=== PATIENT | female | born 1935 | race Hispanic/Latino ===

== ENCOUNTER 2021-03-06 15:04 | Emergency (ER) | payer MEDICARE ==
[~2021-03-06] VITALS: Ht 162.6 cm; Wt 72.6 kg
[2021-03-06] MEDS ORDERED: CLINDAMYCIN PHOS 900MG/ 50ML 50 ML IV ONE (18:15)
[2021-03-06 18:54] LABS: BASOPHILS % 0.2 % (0.0-1.0); EOSINOPHILS # (AUTO) 0.1 (0.0-0.4); EOSINOPHILS % 0.9 % (0.0-6.0); HEMATOCRIT 31.5 % (34.2-44.1); HEMOGLOBIN 10.4 g/dL (12.0-16.0); LYMPHOCYTES # (AUTO) 1.6 (1.0-3.2); LYMPHOCYTES % 18.4 % (18.0-39.1); MEAN CORPUSCULAR HEMOGLOBIN 34.2 pg (28-32); MEAN CORPUSCULAR VOLUME 103.6 fL (81-99); MONOCYTES # (AUTO) 0.7 (0.2-0.8); MONOCYTES % 8.1 % (4.4-11.3); NEUTROPHILS # (AUTO) 6.4 (2.1-6.9); NEUTROPHILS % 71.8 % (38.7-80.0); PLATELET COUNT 159 x10e3/uL (140-360); RED BLOOD COUNT 3.04 x10e6/uL (3.6-5.1); RED CELL DISTRIBUTION WIDTH 14.2 % (11.7-14.4)
[2021-03-06 19:15] LABS: ALBUMIN 3.9 g/dL (3.5-5.0); ANION GAP 14.9 mmol/L (8-16); CALCIUM 9.9 mg/dL (8.4-10.2); CREATININE, SERUM 0.91 mg/dL (0.57-1.11); POTASSIUM 4.9 mmol/L (3.5-5.1)
[2021-03-06] MEDS ORDERED: CLINDAMYCIN HC300 MG PO (19:32)
== END 2021-03-07 07:10 | disposition home or self-care (01) ==
LOC: ER 16:15
DX: L03.114 Cellulitis of left upper limb (principal); I10 Essential (primary) hypertension; I25.10 Atherosclerotic heart disease of native coronary artery without angina pectoris; Z95.810 Presence of automatic (implantable) cardiac defibrillator
CPT/HCPCS: 36415; 80053; 85025; 99283

== ENCOUNTER 2021-03-12 21:22 | Emergency (ER) | payer MEDICARE ==
[~2021-03-12] VITALS: Ht 162.6 cm; Wt 72.6 kg
[~2021-03-12 21:22] MED LIST: CLINDAMYCIN HC300 MG PO
== END 2021-03-12 23:23 | disposition home or self-care (01) ==
LOC: ER 22:47
DX: R20.0 Anesthesia of skin (principal); T36.8X5A Adverse effect of other systemic antibiotics, initial encounter; I10 Essential (primary) hypertension; I25.10 Atherosclerotic heart disease of native coronary artery without angina pectoris; Z95.810 Presence of automatic (implantable) cardiac defibrillator